=== PATIENT | female | born 1990 | race Caucasian/White ===

== ENCOUNTER 2021-08-02 12:13 | Outpatient (CLI) | payer OTHER, SELFPAY ==
--- NOTE | 2021-08-02 12:00 | ECG_ITS ---
Measurements Intervals [place] Rate: 75 P: 50 HI: 158 QRS: -6 QRSD: 100 T: 8 QT: 360 QTc: 405 Interpretive Statements SINUS RHYTHM POSSIBLE LEFT ATRIAL ENLARGEMENT LOW QRS VOLTAGE IN PRECORDIAL LEADS INCOMPLETE RIGHT BUNDLE BRANCH BLOCK BORDERLINE T WAVE ABNORMALITY- INFERIOR LEADS BASELINE ARTIFACT- V4-V5 BORDERLINE ECG Electronically Signed On 08-02-2021 12:54:55 DRYERMAN/WOMAN by Gallo Lisa D.O.
[2021-08-02 12:57] LABS: Hematocrit 40.7 % (37.0-47.0); Hemoglobin 13.7 g/dL (12.0-15.0)
== END 2021-08-02 12:14 | disposition home or self-care (01) ==
LOC: ANHSURGERY 12:18
PROVIDERS: Anesthesiology; PCP Internal Medicine; Visit Provider Surgery Plastic and Reconstructive Surgery
DX: Z01.818 Encounter for other preprocedural examination (principal); Z41.1 Encounter for cosmetic surgery; R94.31 Abnormal electrocardiogram [ECG] [EKG]
CPT/HCPCS: 36415; 85014; 85018; 93005

== ENCOUNTER 2021-08-05 02:25 | Day surgery (SDC) | payer OTHER, SELFPAY ==
[2021-06-14 13:45] VITALS: BMI 29.2
--- NOTE | 2021-06-14 14:17 | PC.NURSE ---
Report to the Outpatient Waiting Room, entrance under the green pavilion located off [facility], at time _0600 on date _06/22/29 . OR Time: . - You and your visitor will be asked a series of questions to screen for COVID 19 for your protection. - A mask is required within the hospital. - Only one visitor is allowed at this time. Patient visitors will be guided where to wait when not with patient. Preoperative COVID Testing Requirements: No COVID Test needed if: (proof is required; if not received patient will have Rapid Test prior to entry) - Patient has received COVID Vaccine at least 14 days prior to procedure date or - Patient has positive COVID test result within last 90 days of surgery date. COVID Test needed if above criteria is not met If not COVID vaccinated a COVID test must be conducted within 72 hours of surgery and patient is asked to isolate self from time of testing until procedure. You will go to the [facility] for your COVID testing. The [facility] site is located at the corner of [address] [facility]. You will only be called if COVID results are positive and your surgeon may reschedule your elective surgery date. Patients may have clear liquids (water, carbonated beverages, clear teas, apple juice) until 3 hours prior to surgery with a maximum of 20 ounces. - No food from midnight until time of surgery - Infants may have breast milk until 4 hours before surgery, formula 6 hours prior to surgery. - Children will be allowed to drink immediately following surgery. If applicable, please bring a bottle or sippy cup to assist with drinking. Juice, water, soda, and popsicles are readily available. For infants on formula, please bring formula the day of surgery. Pacifiers are allowed. Take the following medications with a SIP of water the morning of surgery: _SERTRALINE, HYDROXYZINE PAMOATE Medications to discontinue per physician N/A Date to take last dose____N/A Please no make-up, nail kittitian, hairspray, perfume, deodorant, or body powder the day of surgery. No jewelry (including any body piercings) or valuables the day of surgery, leave them at home. Please take a shower or bath the night before, or the morning of, surgery with an antibacterial soap. Wear comfortable, loose fitting clothing. Children are encouraged to wear pajamas. - Jewelry must be removed prior to entering the operating room. Rings and piercings that are not removed may be cut off. - The hospital will not accept responsibility for valuables. - Please leave all valuables, including medications, at home the day of surgery. If you are going home after surgery, a licensed transport driver must drive you home. - NO public transportation without another adult. - We recommend that an adult stay with you for 24 hours following discharge. - We also recommend that you do not drive, make important decision, drink alcoholic beverages, or take any drugs that were not prescribed by your health care provider for at least 24 hours after your discharge time. For Pediatric surgeries, we recommend two adults accompany the child home (only one inside the building at this time). Follow any additional instructions given to you from your surgeon. Telephone instructions given to __CATY and asked if any additional questions and then verbalized understanding. Patient advised to call surgeon office or pre surgery nurse liaison [phone] if any additional questions.
[2021-08-01 10:48] VITALS: BMI 29.2
--- NOTE | 2021-08-01 10:59 | PC.NURSE ---
Report to the Outpatient Waiting Room, entrance under the green pavilion located off [facility], at time 7:00 on date 08/05/21. OR Time: 9:00. - You will be asked a series of questions to screen for COVID 19 for your protection. - A mask is required within the hospital. - No visitors are allowed at this time. Preoperative COVID Testing Requirements: No COVID Test needed if: (proof is required; if not received patient will have Rapid Test prior to entry) - Patient has received COVID Vaccine at least 14 days prior to procedure date or - Patient has positive COVID test result within last 90 days of surgery date. COVID Test needed if above criteria is not met Patients may have clear liquids (water, carbonated beverages, clear teas, apple juice) until 3 hours prior to surgery (6:00) with a maximum of 20 ounces. - No food from midnight until time of surgery Take the following medications with a SIP of water the morning of surgery: SERTRALINE, HYDROXYZINE Medications to discontinue per physician: VITAMINS/SUPPLEMENTS Date to take last dose: 08/01/21 Please no make-up, nail urdu, hairspray, perfume, deodorant, or body powder the day of surgery. No jewelry (including any body piercings) or valuables the day of surgery, leave them at home. Please take a shower or bath the night before, or the morning of, surgery with an antibacterial soap. Wear comfortable, loose fitting clothing. - Jewelry must be removed prior to entering the operating room. Rings and piercings that are not removed may be cut off. - The hospital will not accept responsibility for valuables. - Please leave all valuables, including medications, at home the day of surgery. If you are going home after surgery, a licensed rear load truck driver must drive you home. - NO public transportation without another adult. - We recommend that an adult stay with you for 24 hours following discharge. - We also recommend that you do not drive, make important decision, drink alcoholic beverages, or take any drugs that were not prescribed by your health care provider for at least 24 hours after your discharge time. Follow any additional instructions given to you from your surgeon. Telephone instructions given to FREDO BLAKE and asked if any additional questions and then verbalized understanding. Patient advised to call surgeon office or pre surgery nurse liaison [phone] if any additional questions.
[2021-08-05] VITALS (11 sets, daily range): BP systolic 103–147; BP diastolic 61–92; PULSE 61–86; RESP 10–18; TEMP 35.9–36.4; O2SAT 99–100; BMI 32.6
[2021-08-05 07:44] LABS: Urine Cotinine NEGATIVE
--- NOTE | 2021-08-05 08:00 | P.PNAN_ITS ---
Anes - Initial Pre Proc Eval Procedure: Operation Date: 08/05/21 09:00 Proposed Procedures p Bilateral Breast Mastopexy - Richard Hameed MD s Liposuction to Abdomen and Back - Richard Hameed MD s Liposuction of Bilateral Axilla - Richard Hameed MD Date/Time: 08/05/21 08:00 Surgeon: Richard Hameed MD Pre Op Diagnosis: skin laxity Patient Data Age: 31 Gender: F Height: 1.6 m Weight: 75 kg Allergies Allergy/AdvReac Type Severity Reaction Status Date / Time TUBERCULIN,OLD SKIN TEST AdvReac Mild COMES BACK Uncoded 08/01/21 10:46 POSTIVE,CHEST XRAY NEG Home Medications Medication Instructions Recorded Confirmed Type cholecalciferol (vitamin D3) 1 tab-cap PO DAILY 05/26/21 08/01/21 History pantoprazole 40 mg tablet,delayed 40 mg PO QAM 05/26/21 08/01/21 History release sucralfate 1 gram tablet 1 g PO DAILY 05/26/21 08/01/21 History hydroxyzine pamoate 25 mg PO DAILY 06/14/21 08/01/21 History sertraline 100 mg PO DAILY 06/14/21 08/01/21 History docusate sodium 100 mg capsule 100 mg PO DAILY #14 cap 07/26/21 08/01/21 Rx oxycodone-acetaminophen 5 mg-325 1 tablet PO Q6H PRN #30 tablet 07/28/21 08/01/21 Rx mg tablet multivitamin 1 tablet PO DAILY 08/01/21 08/01/21 History Laboratory Tests 08/05/21 07:22 Cotinine Negative Patient hx anesthesia problems: none Family hx anesthesia problems: none Results Review: All pre-operative results and documents have been reviewed as part of the pre-operative evaluation. [facility] Past Medical History Medical History (Updated 08/04/21 @ 13:49 by Antonio Garcia DO) Anxiety Seizure Family History Family History (System 06/20/21 @ 08:42 by Amaya Wooten) Father Diabetes mellitus Mother Osteoporosis Social History Social History (System 06/20/21 @ 08:42 by Amaya Wooten) Smoking status: Never smoker Alcohol intake: current Drinks per week: 1 Substance use: never Substance use type: does not use Living arrangements: with family Spiritual care concerns: No Anes - Eval Final PreProcedure Day of Procedure 08/05/21 08:00 Patient weight: overweight Heart: regular rate and rhythm Lungs: clear to auscultation and normal air movement Airway: Mallampati scale class II Neurological: alert and oriented Last oral intake: >/= 8 hours ASA classification: III Emergent: no Anesthetic plan: proceed Anesthesia type and monitoring: general ETT and standard monitoring Results Review: All pre-operative results and documents have been reviewed as part of the pre-operative evaluation. Informed Consent: The patient's anesthetic plan and its attendant risks and benefits were discussed with the patient/family/POA. Questions were solicited and answers provided to the satisfaction of the patient/family/POA.
--- NOTE | 2021-08-05 08:18 | WPDHPUPDATE1 ---
History and Physical Update Update Date/Time: 08/05/21 08:18 History and Physical has been reviewed, including an updated exam of the patient. There are NO changes in the patient's condition. Risks, benefits, and alternatives have been discussed and questions answered. Patient agrees to proceed with procedure.
--- NOTE | 2021-08-05 08:43 | SUR.PREOP ---
0805; RN IN ROOM WHILE DR FREEMAN MARKED PT
[2021-08-05] MEDS: LACTATED RINGERS 1,000 ML 30 ML IV CONT ×2 (08:46→13:52)
[2021-08-05] MEDS: SCOPOLAMINE 1.5 MG PATCH TRANSDERM (08:48)
--- NOTE | 2021-08-05 08:48 | P.OP_ITS ---
Procedure Note - Detailed Date of Procedure 08/05/21 Pre-op Diagnosis skin laxity Localized adiposity Post-op Diagnosis same Procedure Performed 1. Suction lipectomy abdomen, back, axillary fullness. 2. Bilateral mastopexy Surgeon Richard Hameed MD Anesthesia general Findings Bilateral inverted T superior pedicle autoaugmentation mastopexy. Lipoaspirate: 5000 cc Description of Procedure Preoperatively the risks, benefits, alternatives were discussed in extensive detail. I want her be very realistic about the risks involved as well as expectations. Made sure answered all of her questions to her satisfaction. Consent was obtained. Patient was marked in the preoperative holding area with her verification. We spent extensive time talking about the markings and her goals and realistic expectations. All questions were answered. She was taken to the operating room. Anesthesia provided by anesthesiology. She was placed prone on the operating room table and prepped and draped in a standard sterile fashion. Surgical time-out was taken. Stab incisions were made and I tumesced with a tumescent solution. Once adequate time for hemostasis using a 5 mm basket cannula based on S.A.F.E. technique I completed suction lipectomy in multiple planes and passes to a good rolling pinch test, contour, and based on my preoperative planning. Close port sites with a 5 0 nylon single suture. She was then placed supine. We did prep 360?. I proceeded with mastopexy. Stab incisions were made nasal low volume tumescent. I tailor tacked the breast into position and verified my markings. Placed her in a sitting position and marked out the nipple-areolar complex at 42 mm. She was then placed supine. I de-epithelialized the superior pedicle bilateral. Incisions were made and I de-epithelialized the inferior portion of the breast. I elevated medial and lateral flaps and created an auto augmentation flap from the appear portion based on the intercostal perforators. This was sutured to the chest wall using 2-0 PDS. I then tailor tacked the breast into position. Closed using 2-0 Stratafix followed by 3-0 Stratafix and running subcuticular 4- 0 Monocryl. Around the Mj I placed 3-0 Stratafix and 4-0 Monocryl and along the vertical incision this was 2-0 PDS followed by 3-0 Monocryl in a running subcuticular 4-0 Monocryl as well. Steri-Strips were placed. Stab incisions were made I completed suction lipectomy in multiple planes and passes turning on her sides for lateral contouring as well. Proceeded as above. Close port sites with 5 0 nylon single suture. Dressings were placed. Patient was woken taken to the PACU without difficulty. All instrument sponge counts were correct at the end of the case. Estimated Blood Loss 100 Drains No Packing No Pathology none sent Complications No immediate complications Condition stable Disposition PACU
[2021-08-05] MEDS: ceFAZolin 2 GM/D5W 50 ML 2 GM/50 ML BAG IVPB (08:52)
[2021-08-05] MEDS: TRANEXAMIC ACID 1,000MG/ISO100 1,000 MG/100 ML BAG 200 MG IVPB (09:01)
[2021-08-05] MEDS: LACTATED RINGERS IRRIG 1,000 ML, LIDOCAINE HCL 1% LOCAL INJ 50 ML, EPINEPHrine HCL INJ ... INFILTRATE ×5 (11:01→12:45)
[2021-08-05] MEDS: LIDO 1%/EPINEPHRINE/PF 1:200,000 30 ML VIAL INFILTRATE (11:14)
[2021-08-05] MEDS: BUPIVACAINE HCL 0.25% PF 30 ML VIAL INFILTRATE (11:15)
[2021-08-05] MEDS: fentaNYL CITRATE INJ (*CRX) 100 MCG/2 ML VIAL 25 MCG IV PUSH ×8 (14:13→15:25)
[2021-08-05] MEDS: ONDANSETRON INJ 4 MG/2 ML VIAL IV PUSH (16:14)
[2021-08-05] MEDS: oxyCODONE HCL (*CRX) 5 MG TAB IR PO (16:14)
== END 2021-08-05 17:33 | disposition home or self-care (01) ==
PROVIDERS: PCP Internal Medicine; Visit Provider Surgery Plastic and Reconstructive Surgery
PROC: (CPT 19316; principal; 2021-08-05 09:00)
PROC: (CPT 15877; 2021-08-05 09:00)
PROC: (CPT 15877; 2021-08-05 09:00)
DX: Z41.1 Encounter for cosmetic surgery (principal); L57.4 Cutis laxa senilis; E65 Localized adiposity; F41.9 Anxiety disorder, unspecified; Z79.899 Other long term (current) drug therapy
CPT/HCPCS: 19316; 15877; 80307; A9270; J0171; J0690; J1100; J1170; J2250; J2405; J2704; J2710; J3010; J7120

== ENCOUNTER 2022-11-25 05:26 | Emergency (ER) | payer OTHER, SELFPAY ==
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
[2022-11-25] MEDS: MORPHINE SULFATE (*CRX) 4 MG/ML INJ IV PUSH (07:34)
[2022-11-25 07:40] VITALS: BP 121/80; PULSE 74; RESP 17; O2SAT 98
[2022-11-25 07:56] LABS: Estimated CRCL calculation 84 ml/min; Estimated Glomerular Filt Rate > 60
== END 2022-11-25 10:16 | disposition home or self-care (01) ==
PROVIDERS: Emergency Medicine; Emergency Provider General Practice; PCP Internal Medicine
DX: S92.351A Displaced fracture of fifth metatarsal bone, right foot, initial encounter for closed fracture (principal); S10.91XA Abrasion of unspecified part of neck, initial encounter; F41.9 Anxiety disorder, unspecified; Y04.8XXA Assault by other bodily force, initial encounter
CPT/HCPCS: 70486; 70498; 72125; 73562; 73630; 81025; 96374; 99284; J2270; Q9967

== ENCOUNTER 2023-04-18 01:35 | Day surgery (SDC) | payer OTHER, SELFPAY ==
[2023-04-05 13:28] VITALS: BMI 29.2
[2023-04-18 09:57] VITALS: BP 118/80; PULSE 67; RESP 18; TEMP 36.4; O2SAT 100
[2023-04-18] MEDS: LACTATED RINGERS 1,000 ML 150 ML IV CONT (10:13)
--- NOTE | 2023-04-18 10:52 | P.PNAN_ITS ---
Anes - Initial Pre Proc Eval Procedure: Operation Date: 04/18/23 12:30 Proposed Procedures p Esophagogastroduodenoscopy - Tigre Schaefer MD Date/Time: 04/18/23 10:52 Surgeon: Tigre Schaefer MD Pre Op Diagnosis: Epigastic pain, Nausea,hx of peptic ulcer disease Patient Data Age: 33 Gender: F Height: 1.6 m Weight: 76.7 kg Last Vital Signs Temp 97.6 F 04/18/23 09:57 Pulse 67 04/18/23 09:57 Resp 18 04/18/23 09:57 BP 118/80 04/18/23 09:57 Pulse Ox 100 04/18/23 09:57 O2 Del Method Room Air 04/18/23 09:57 Allergies Allergy/AdvReac Type Severity Reaction Status Date / Time TUBERCULIN,OLD SKIN TEST AdvReac Mild COMES BACK Uncoded 04/18/23 09:56 POSTIVE,CHEST XRAY NEG Home Medications Medication Instructions Recorded Confirmed Type multivitamin 1 tablet PO DAILY 08/01/21 04/05/23 History pantoprazole 40 mg tablet,delayed 40 mg PO QAM 3 months #90 tabs 03/29/23 04/05/23 Rx release sucralfate 1 gram tablet 1 g PO DAILY 04/05/23 04/05/23 History Patient hx anesthesia problems: none Family hx anesthesia problems: none Results Review: All pre-operative results and documents have been reviewed as part of the pre- operative evaluation. [facility] Past Medical History Medical History Anxiety Seizure Family History Family History Father Diabetes mellitus Mother Osteoporosis Social History Social History Smoking status: Never smoker Alcohol intake: never Drinks per week: 2 Substance use: never Substance use type: does not use Living arrangements: with family Gender identity (if verbalized by the patient): Female Sexual Orientation (if Verbalized by the Patient): Straight or Heterosexual Spiritual care concerns: No Anes - Eval Final PreProcedure Day of Procedure 04/18/23 10:52 Patient weight: obese Heart: regular rate and rhythm Lungs: clear to auscultation Airway: Mallampati scale class II Neurological: alert and oriented Last oral intake: >/= 8 hours ASA classification: II Emergent: no Anesthetic plan: proceed Anesthesia type and monitoring: general GIVS and standard monitoring Results Review: All pre-operative results and documents have been reviewed as part of the pre- operative evaluation. Informed Consent: The patient's anesthetic plan and its attendant risks and benefits were discussed with the patient/family/POA. Questions were solicited and answers provided to the satisfaction of the patient/family/POA.
--- NOTE | 2023-04-18 11:08 | WPDHPUPDATE1 ---
History and Physical Update Update Date/Time: 04/18/23 11:08 History and Physical has been reviewed, including an updated exam of the patient. There are NO changes in the patient's condition. Risks, benefits, and alternatives have been discussed and questions answered. Patient agrees to proceed with procedure.
[2023-04-18 11:20] VITALS: BP 92/55; PULSE 63; RESP 20; O2SAT 98
[2023-04-18 11:40] VITALS: BP 95/53; PULSE 60; RESP 19; O2SAT 100
[2023-04-18 11:50] VITALS: BP 112/77; PULSE 64; RESP 21; O2SAT 100
== END 2023-04-18 11:58 | disposition home or self-care (01) ==
PROVIDERS: PCP Nurse Practitioner Family; Visit Provider Internal Medicine Gastroenterology
PROC: 0DJ08ZZ Inspection of Upper Intestinal Tract, Via Natural or Artificial Opening Endoscopic (ICD-10-PCS; CPT 43235; principal; 2023-04-18 12:30)
DX: K29.50 Unspecified chronic gastritis without bleeding (principal); E66.9 Obesity, unspecified; Z68.30 Body mass index [BMI] 30.0-30.9, adult
CPT/HCPCS: 43239; 88305; J2704; J7120

== ENCOUNTER 2023-04-19 16:26 | Outpatient (CLI) | payer OTHER, SELFPAY ==
[2023-04-19 17:54] LABS: HIV 1/2 Ab P24 Ag Result Negative (Negative)
[2023-04-19 18:26] LABS: Hepatitis B Surface Antigen Negative (Negative)
[2023-04-19 18:31] LABS: HAV RESULT Negative (Negative)
[2023-04-19 18:44] LABS: Hepatitis C Virus Antibody Negative (Negative)
[2023-04-20 10:29] LABS: Rapid Plasma Reagin Non-Reactive (NonReactive)
== END 2023-04-19 16:27 | disposition home or self-care (01) ==
LOC: ANHLAB 16:27
PROVIDERS: PCP Nurse Practitioner Family; Visit Provider Obstetrics & Gynecology
DX: Z11.3 Encounter for screening for infections with a predominantly sexual mode of transmission (principal)
CPT/HCPCS: 36415; 86592; 86695; 86696; 86703; 86709; 86803; 87340; G0432

== ENCOUNTER 2023-09-26 11:16 | Emergency (ER) | payer OTHER, SELFPAY ==
--- NOTE | ~2023-09-26 | XR_ITS ---
XR ankle LT min 3V DATE: 09/26/2023 11:40 INDICATION: Pain and swelling after rolled ankle playing volleyball last night TECHNIQUE: 4 views COMPARISON: None FINDINGS: There is mild lateral soft tissue swelling. No fracture or dislocation or disruption of th e ankle mortise. There is a lag screw at the base of the fifth metatarsal bone. IMPRESSION: Mild lateral soft tissue swelling Reviewed, dictated and finalized at location B.
--- NOTE | 2023-09-26 11:21 | ED.LOWEXIN ---
HPI - Extremity Injury (Lower) General Chief Complaint: Extremity Injury, Lower Stated Complaint: INJURED L ANKLE Time Seen by Provider: 09/26/23 11:23 Source: patient Mode of arrival: ambulatory Limitations: no limitations History of Present Illness HPI Narrative: Samantha is a 33-year-old female patient presenting to the clinic today with complaints of left ankle injury after playing volleyball yesterday. She reports around 5:00 p.m. she was playing volleyball when she rolled her left ankle. States she is having pain to the left lateral ankle. Related Data Home Medications Medication Instructions Recorded Confirmed multivitamin 1 tablet PO DAILY 08/01/21 09/26/23 levonorgestrel 21 mcg/24 hours (8 1 device intrauterine ONCE 06/21/23 09/26/23 yrs) 52 mg intrauterine device (Mirena) Allergies Allergy/AdvReac Type Severity Reaction Status Date / Time TUBERCULIN,OLD SKIN TEST AdvReac Mild COMES BACK Uncoded 09/26/23 11:28 POSTIVE,CHEST XRAY NEG Review of Systems Review of Systems: Pertinent positives per HPI. Patient denies any fever, chills, rash, headache, visual changes, dizziness, cough, runny nose, sore throat, shortness of breath, chest pain, palpitations, nausea, vomiting, diarrhea, constipation, abdominal pain, or any urinary issues. [facility] Past Medical History Medical History Anxiety Encounter for insertion of mirena IUD 2014 Hx LEEP (loop electrosurgical excision procedure), cervix, 2008? Remove/insert IUD Seizure Surgical History Surgical History History of gynecological procedure (06/21/23) mirena iud removal and insertion of new device Family History Family History Father Diabetes mellitus Mother Osteoporosis Social History Social History Smoking status: Never smoker Alcohol intake: never Drinks per week: 2 Substance use: never Substance use type: does not use Living arrangements: with family Occupation/Education: unemployed Gender identity (if verbalized by the patient): Female Sexual Orientation (if Verbalized by the Patient): Straight or Heterosexual Spiritual care concerns: No Comments At the time of my signature, I reviewed and agree with the nursing past medical, surgical, social, and family history. There is no relevant family history pertinent to the patient complaint. Exam Narrative: General: Well-developed, well nourished, in no apparent distress Head: Normocephalic, atraumatic. Cardio: Regular rate and rhythm, s1 and s2 normal, no murmur appreciated. Resp: Clear to auscultation bilaterally, no rhonchi, rales, wheezing or rubs. Musculoskeletal: No deformity, tender to palpation over the left lateral ankle with notable swelling, pain with valgus varus testing and pain with dorsal flexion over the left lateral ankle, grossly normal range of motion, muscle strength strong and equal, peripheral pulse strong, no edema, no cyanosis, normal gait and station Course Course Emergency Course: Portions of this record may have been created with voice recognition software. Level of Care: Express Care Visit Vital Signs Vital signs: Vital Signs Temperature 36.6 C 09/26/23 11:22 Pulse Rate 92 09/26/23 11:22 Respiratory Rate 16 09/26/23 11:22 Blood Pressure 131/79 09/26/23 11:22 Pulse Oximetry 100 09/26/23 11:22 Temperature 36.6 C 09/26/23 11:22 Pulse Rate 92 09/26/23 11:22 Respiratory Rate 16 09/26/23 11:22 Blood Pressure 131/79 09/26/23 11:22 Pulse Oximetry 100 09/26/23 11:22 Oxygen Delivery Room Air 09/26/23 11:25 Vital signs reviewed MDM - Extremity Injury (Lower) MDM Narrative Medical decision making narrative: At the time of visit patient i
[2023-09-26 11:22] VITALS: BP 131/79; PULSE 92; RESP 16; TEMP 36.6; O2SAT 100
--- NOTE | 2023-09-26 12:09 | PC.NURSE ---
+PMS POST MARIBEL APPLICATION
== END 2023-09-26 12:00 | disposition home or self-care (01) ==
PROVIDERS: Emergency Provider Nurse Practitioner Family
DX: S93.412A Sprain of calcaneofibular ligament of left ankle, initial encounter (principal); X50.9XXA Other and unspecified overexertion or strenuous movements or postures, initial encounter; Y93.68 Activity, volleyball (beach) (court)
CPT/HCPCS: 73610; 99213; G0463